=== PATIENT | male | born 1950 | race Caucasian/White ===

== ENCOUNTER 2016-12-27 15:30 | Emergency (ER) | payer OTHER ==
[2016-12-27] MEDS ORDERED: TENECTEPLASE 50 MG VIAL IVPUSH ONE ×2 (15:39→15:40)
--- NOTE | 2016-12-27 15:44 | PDOC ---
[id number] Abundio, while he attended the patient I intubated the patient using a Mac 4 blade and an 8.0 endotracheal tube I visualized the endotrachial tube passing through the cords There was colorimetric change indicative of correct placement There was fog in the tube Breath sounds were equal bilaterally BVM easily administered The patients family provided a history that after several minutes of operating a snowblower, the patient developed chest pain Shortly before he lost consciousness, he was seen grasping his chest Acute PA was high on the differential of the treating physician I placed the order for TNKase for the attending physician Nurse, Vaishnavi, verified the dose with the pharmacy 12/27/16 16:13 I performed several bedside transthoracic echo cardiograms At each point there was no evidence of pericardial effusion or tamponade There was minimal cardiac activity consistent with ventricular fibrillation 12/27/16 16:27 *DC/Admit/Observation/Transfer Diagnosis at time of Disposition: Cardiac arrest
[2016-12-27] MEDS ORDERED: SODIUM BICARBONATE 8.4% 50 MEQ/50 ML VIAL ONE (15:48)
[2016-12-27] MEDS ORDERED: DOPAMINE 400 MG/D5W - 250 ML IVPB ONE (16:00)
[2016-12-27 16:26] VITALS: BP 0/0; PULSE 0; BMI 34.4
--- NOTE | 2016-12-27 17:08 | PDOC ---
History of Present Illness <Robby Del Castillo - Last Filed: 12/27/16 17:08> - General History Source: Family Exam Limitations: Unresponsive - History of Present Illness Initial Comments: 12/27/16 17:08 The patient is a 66 year old male, with a significant past medical history of Renal transplant (2004), HTN, HLD, diabetes, chronic leukemia and rapid heart rate, who presents to the emergency department unresponsive for the past 2 minutes prior to arriving to the ED. The patient arrived at 3:31pm to the ED, at which point compressions were already in progress. As per family the patient was having chest pain and became diaphoretic after shoveling snow with a funeral home director for 45 minutes at their home. As per family the patient was having chest pain for roughly 30 minutes prior to being driving to the ED by his son in law. Vitals at 3:33pm 143 HR, 74 O2 sat, 14 RR The patient was intubated at 3:34pm Patient was shocked at 100 voltage at 3:36pm CPR continued Sodium Bicarb was pushed at 3:36pm Epinephrine was pushed at 3:37pm Patient was shocked at 200 voltage at 3:38pm CPR continued Vitals at 3:38pm 148 HR, 70 O2 sat, 22 RR Patient was shocked at 200 voltage at 3:39pm Epinephrine was pushed at 3:39pm Sodium Bicarb was pushed at 3:39pm 100 Lidocaine was pushed at 3:40pm Patient was shocked at 200 voltage at 3:40pm CPR continued Vitals at 3:40pm 106 HR, 78 O2, 26 RR Epinephrine was pushed at 3:42pm TNK 35 mg pushed at 3:45pm Vitals at 3:46pm 112 HR, 91 O2, 27 RR Epinephrine was pushed at 3:47pm Patient was shocked at 200 voltage at 3:47pm CPR continued 150 amiodarone was pushed at 3:48pm Sodium Bicarb was pushed at 3:49pm The patient was shocked at 200 voltage at 3:49pm CPR continued Epinephrine was pushed at 3:50pm The patient was shocked at 400 voltage at 3:52pm CPR continued Sodium Bicarb was pushed at 3:52pm 150 amiodarone was pushed at 3:53pm Epinephrine was pushed at 3:53pm The patient was shocked at 400 voltage at 3:54pm CPR continued 100 Lidocaine pushed at 3:55pm The patient was shocked at 400 voltage at 3:55pm CPR continued Epinephrine was pushed at 3:57pm The patient was shocked at 400 voltage at 3:58pm CPR continued Epinephrine was pushed at 3:58pm Dopamine drip was pushed at 3:59pm The patient was shocked at 400 voltage at 4:01pm CPR continued Compressions stopped at 4:06pm Time of 4:06pm Allergies: None Past surgical history: Renal transplant (2004) Social history: No alcohol, tobacco or drug use reported PMD - Dr. Shruthi Elliott <Sundar Rao - Last Filed: 12/27/16 17:40> - General Chief Complaint: Cardiac Arrest Stated Complaint: SYNCOPE/NEAR SYNCOPE (DIALYSIS) Time Seen by Provider: 12/27/16 16:26 Past History - Past Medical History Anemia: Yes (CLM/CHRONIC LEUKEMIA) Cardiac Disorders: Yes (RAPID HEART RATE) Diabetes: Yes Dialysis: (NO LONGER; HAD KIDNEY TRANSPLANT. FISTULA STILL IN PLACE. THRILL+/ bRUIT+) GI Disorders: No Disorders: No HTN: Yes Hypercholesterolemia: Yes - Immunization History Immunization Up to Date: Yes (FLU AND PNA) - Psycho/Social/Smoking Cessation Hx Anxiety: No Suicidal Ideation: No Smoking Status: No Smoking History: Never smoked Have you smoked in the past 12 months: No Number of Cigarettes Smoked Daily: 0 Information on smoking cessation initiated: No Hx Alcohol Use: No Drug/Substance Use Hx: No Substance Use Type: None Hx Substance Use Treatment: No <Robby Del Castillo - Last Filed: 12/27/16 17:08> <Sundar Rao - Last Filed: 12/27/16 17:40> - Past Medical History Allergies/Adverse Reactions: Allergies Allergy/AdvReac Type Severity Reaction Status Date / Time No Known Allergies Allergy Verified 12/27/16 16:26 Home Medications: Ambulatory Orders Unobtainable [Unobtainable] 12/27/16 Review of Systems - Review of Systems Able to Perform ROS?: No Comments:: 12/27/16 17:09 Unable to obtain due to unresponsiveness. <Sundar Rao - Last Filed: 12/27/16 17:40> *Physical Exam - Vital Signs Last Vital Signs Temp Pulse Resp BP Pulse Ox 0 L 0 L 0/0 0 L 12/27/16 15:30 12/27/16 15:30 12/27/16 15:30 12/27/16 15:30 <Robby Del Castillo - Last Filed: 12/27/16 17:08> - Vital Signs Last Vital Signs Temp Pulse Resp BP Pulse Ox 0 L 0 L 0/0 0 L 12/27/16 15:30 12/27/16 15:30 12/27/16 15:30 12/27/16 15:30 <Sundar Rao - Last Filed: 12/27/16 17:40> Medical Decision Making - Medical Decision Making 12/27/16 17:28 CPR was started in the parking lot as we wheeled the patient into the ED from their private vehicle. Once in the department and hooked to the monitor it was clear he was in Vfib and things evolved accordingly. No stone was left unturned, he was given amiodarone, lidocaine, epinephrine, Bicarb, calcium, dopamine, singular defibrillating and double defibrillator at maximum voltage. As well as streptokinase. Ultrasound was used along with EKG monitoring equipment to determine PEA, ventricular fibrillation, asystole. Cardiac unresponsiveness was determined at 4:06pm and the patient was pronounced , most probable cause of was massive DE, given the course of the resuscitation and the patient's history. Family was supported, Dr. Shruthi Elliott was notified as well as the manager public. <Sundar Rao - Last Filed: 12/27/16 17:40> *DC/Admit/Observation/Transfer - Attestations Physician Attestion: 12/27/16 17:08 I, Dr. Robby Del Castillo, attest that this document has been prepared under my direction and personally reviewed by me in its entirety. I further attest, that it accurately reflects all work, treatment, procedures and medical decision -making performed by me. <Robby Del Castillo - Last Filed: 12/27/16 17:08> - Attestations Scribe Attestion: 12/27/16 17:09 Documentation prepared by Sundar Rao, acting as medical accounting clerk for Robby Del Castillo MD <Sundar Rao - Last Filed: 12/27/16 17:40> Diagnosis at time of Disposition: Cardiac arrest - Referrals Referrals: Shruthi Zaragoza MD [Primary Care Provider] - - Patient Instructions - Post Discharge Activity
== END 2016-12-27 22:08 | disposition expired ==
LOC: JER 15:30
PROC: 0BH17EZ Insertion of Endotracheal Airway into Trachea, Via Natural or Artificial Opening (ICD-10-PCS; principal; 2016-12-27)
PROC: 5A12012 Performance of Cardiac Output, Single, Manual (ICD-10-PCS; 2016-12-27)
PROC: 3E03317 Introduction of Other Thrombolytic into Peripheral Vein, Percutaneous Approach (ICD-10-PCS; 2016-12-27)
DX: I46.9 Cardiac arrest, cause unspecified (principal); R07.89 Other chest pain
CPT/HCPCS: 99282-25; J3101